=== PATIENT | male | born 2000 | race Caucasian/White ===

== ENCOUNTER 2024-07-09 12:43 | Emergency (ER) | payer BC, SELFPAY ==
[2024-07-09 12:48] VITALS: BP 139/90; PULSE 73; TEMP 36.8; O2SAT 100; BMI 23.7
--- NOTE | 2024-07-09 12:57 | ED_ITS ---
HPI HPI - General Adult General Chief complaint: Ear Stated complaint: FOREIGN OBJECT IN EAR Time Seen by Provider: 07/09/24 12:54 Mode of arrival: walk-in History of Present Illness HPI narrative: Patient states that he works wearing ear protection, he states that approximately half hour ago he pulled the ear protection pieces out of his ear and the rubber tip of the ear protection stayed inside his left ear canal. He has been unable to get out since that. Related Data Home Medications ?Medication ?Instructions ?Recorded ?Confirmed No Known Home Medications 07/09/24 07/09/24 Allergies Allergy/AdvReac Type Severity Reaction Status Date / Time No Known Drug Allergies Allergy Verified 07/09/24 12:48 Opioid HPI Opioid Management Most Recent Opioid Data: No Data to Display Review of Systems ROS Narrative Negative unless otherwise stated in the HPI PFSH PFSH Social History Little interest or pleasure in doing things: not at all Feeling down, depressed, or hopeless: not at all Exam Narrative Exam Narrative: General: NAD, AAOx3, no distress HEENT: NCAT, mmm, left ear canal black rubber piece was noted Constitutional Vital Signs, click to edit/add: Last Vital Signs Temp 98.2 F 07/09/24 12:48 Pulse 73 07/09/24 12:48 Resp 18 07/09/24 12:48 BP 139/90 07/09/24 12:48 Pulse Ox 100 07/09/24 12:48 O2 Del Method Room Air 07/09/24 12:48 Course Vital Signs Vital signs: Vital Signs Temperature 98.2 F 07/09/24 12:48 Pulse Rate 73 07/09/24 12:48 Respiratory Rate 18 07/09/24 12:48 Blood Pressure 139/90 07/09/24 12:48 Pulse Oximetry 100 07/09/24 12:48 Oxygen Delivery Method Room Air 07/09/24 12:48 Temperature 98.2 F 07/09/24 12:48 Pulse Rate 73 07/09/24 12:48 Respiratory Rate 18 07/09/24 12:48 Blood Pressure 139/90 07/09/24 12:48 Pulse Oximetry 100 07/09/24 12:48 Oxygen Delivery Method Room Air 07/09/24 12:48 Medical Decision Making MDM Narrative Medical decision making narrative: Advanced guidance has been given. Vss, pex is benign at this time. Pt to fu with pcp 1-2 days for reeval, rter should sx worsen, persist or become worrysome in any way. All incidental laboratory studies, EKG, radiologic findings have been noted and discussed with patient. Patient was reevaluated with a benign exam at this time. Pt expressed understanding and agreement with plan of care at this time. Will fu as planned. Pt stable for discharge. Discharge Plan Discharge Chief Complaint: Ear Clinical Impression: Foreign body Patient Disposition: Home, Self-Care Time of Disposition Decision: 13:00 Condition: Good Prescriptions / Home Meds: No Action No Known Home Medications Print Language: Bahamian Instructions: Soft Tissue Foreign Body (ED) Additional Instructions: Follow-up with your PCP in the next 1 to 2 days. Return to the emergency department should symptoms worsen or become worrisome in any way. Procedures ED FB Foreign Body Removal Foreign Body Removal Time out performed: yes Foreign Body Removal Site: left (Ear canal) Description of foreign body: other (Ear protection rubber piece tip) Technique: removal with forceps (Alligator forceps) Confirmed by: direct visualization Complications: none Post-procedure exam: awake, alert
== END 2024-07-09 13:11 | disposition home or self-care (01) ==
LOC: ER 13:06
PROVIDERS: Emergency Provider Emergency Medicine
DX: T16.2XXA Foreign body in left ear, initial encounter (principal); W44.8XXA Other foreign body entering into or through a natural orifice, initial encounter
CPT/HCPCS: 69200; 99281